=== PATIENT | male | born 2005 | race Caucasian/White ===

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

== ENCOUNTER 2023-03-18 15:24 | Emergency (ER) | payer MEDICAID, OTHER ==
[~2023-03-18] VITALS: Ht 160 cm; Wt 48.4 kg
[2023-03-18 15:26] VITALS: BP 130/75; TEMP 99.2; O2SAT 98
[2023-03-18 17:46] LABS: RSV AMPLIFICATION NEGATIVE (NEGATIVE)
== END 2023-03-18 16:29 | disposition home or self-care (01) ==
LOC: M ED 15:24
DX: J06.9 Acute upper respiratory infection, unspecified (principal); Z20.828 Contact with and (suspected) exposure to other viral communicable diseases

== ENCOUNTER 2023-03-22 23:12 | Inpatient (IN) | payer OTHER ==
[~2023-03-22] VITALS: Ht 160 cm; Wt 48.8 kg
[2023-03-23 00:23] LABS: AMPHETAMINES LEVEL URINE NEGATIVE (NEGATIVE); BARBITURATES URINE NEGATIVE (NEGATIVE); BENZODIAZEPINES URINE NEGATIVE (NEGATIVE); COCAINE METABOLITE URINE NEGATIVE (NEGATIVE); METHADONE URINE NEGATIVE (NEGATIVE); OPIATES URINE NEGATIVE (NEGATIVE); PHENCYCLIDINE URINE NEGATIVE (NEGATIVE)
[2023-03-23 00:24] LABS: ETHYL ALCOHOL (ETHANOL) < 0.003 % (0.000-0.010)
[2023-03-23 00:25] LABS: HEMATOCRIT 41.5 % (42.0-52.0); HEMOGLOBIN 14.3 g/dl (13.5-17.5); MEAN CORPUSCULAR HGB CONC 34.5 g/dl (32.0-36.5); MEAN CORPUSCULAR VOLUME 89.8 fl (80.0-96.0); PLATELET COUNT, AUTOMATED 204 10^3/uL (150-450); RED BLOOD COUNT 4.62 10^6/uL (4.30-6.10); SALICYLATE LEVEL < 3.0 MG/DL (<30); WHITE BLOOD COUNT 8.8 10^3/uL (4.0-10.0)
[2023-03-23 00:26] LABS: ALBUMIN 4.7 G/DL (3.2-5.2); ALKALINE PHOSPHATASE 72 U/L (46-116); ALT/SGPT 30 U/L (7.0-40); AST/SGOT 29 U/L (<34); BILIRUBIN,DIRECT 0.3 MG/DL (<0.4); BILIRUBIN,TOTAL 0.8 MG/DL (0.3-1.2); BLOOD UREA NITROGEN 7 MG/DL (9-23); CALCIUM LEVEL 9.6 MG/DL (8.5-10.1); CARBON DIOXIDE LEVEL 29 MMOL/L (20-31); CHLORIDE LEVEL 105 MMOL/L (98-107); CREATININE FOR GFR 0.66 MG/DL (0.70-1.30); GLUCOSE, FASTING 91 MG/DL (60-100); POTASSIUM SERUM 4.4 MMOL/L (3.5-5.1); SODIUM LEVEL 142 MMOL/L (136-145); TOTAL PROTEIN 7.1 G/DL (5.7-8.2)
[2023-03-23 00:28] LABS: CANNABINOIDS URINE POSITIVE (NEGATIVE)
[2023-03-23 00:29] LABS: THYROID STIMULATING HORMONE 1.569 uIU/ML (0.48-4.17)
[2023-03-23] MEDS ORDERED: diphenhydrAMINE 25MG CAP PO PRN (01:30)
[2023-03-23] MEDS ORDERED: IBUPROFEN 400MG TAB PO PRN (01:30)
[2023-03-23] MEDS ORDERED: MAALOX 30 ML SUSP *UDC PO PRN (01:30)
[2023-03-23] MEDS ORDERED: MOM 30ML SUSPENSION UDC PO PRN (01:30)
[2023-03-23 05:00] VITALS: BP 122/61; TEMP 98.1; O2SAT 98
[2023-03-23] MEDS ORDERED: MED REC IN PROGRESS XX SCH (13:00)
[2023-03-23] MEDS ORDERED: HOME MED LIST COMPLETE! XX SCH (13:10)
[2023-03-23] MEDS ORDERED: SERTRALINE HCL 25 MG TABLET PO ONE (13:30)
[2023-03-23 17:10] VITALS: BP 127/60; TEMP 98.6; O2SAT 97
[2023-03-24 06:17] VITALS: BP 149/66; TEMP 98.4; O2SAT 97
[2023-03-24] MEDS: SERTRALINE HCL 50 MG TAB PO SCH (08:32)
[2023-03-24] MEDS ORDERED: ONDANSETRON 4MG TAB PO PRN (11:15)
[2023-03-24 18:00] VITALS: BP 142/86; TEMP 97.8; O2SAT 96
[2023-03-25 06:50] VITALS: BP 132/57; TEMP 98; O2SAT 98
[2023-03-25] MEDS: SERTRALINE HCL 50 MG TAB PO SCH (09:02)
[2023-03-25] MEDS: ACETAMINOPHEN TAB 650MG DOSE (2X325MG) PO PRN (11:00)
[2023-03-25 19:28] VITALS: BP 145/84; TEMP 98.4; O2SAT 98
[2023-03-26 05:02] VITALS: BP 121/71; TEMP 97.9; O2SAT 98
[2023-03-26] MEDS: SERTRALINE HCL 50 MG TAB PO SCH (09:02)
[2023-03-26 18:31] VITALS: BP 125/57; TEMP 97.1; O2SAT 98
[2023-03-26] MEDS: traZODone 50 MG TAB PO PRN (22:48)
[2023-03-27 06:37] VITALS: BP 129/69; TEMP 98.5; O2SAT 99
[2023-03-27] MEDS: SERTRALINE HCL 50 MG TAB PO SCH (08:55)
[2023-03-27 16:13] VITALS: BP 116/60; TEMP 98.3; O2SAT 97
[2023-03-27] MEDS: traZODone 50 MG TAB PO PRN (22:50)
[2023-03-28 06:25] VITALS: BP 145/61; TEMP 97.4; O2SAT 100
[2023-03-28] MEDS: SERTRALINE HCL 50 MG TAB PO SCH (08:30)
[2023-03-28] MEDS ORDERED: SERT50TA29 PO (09:59)
[2023-03-28] MEDS: ACETAMINOPHEN TAB 650MG DOSE (2X325MG) PO PRN (14:32)
[2023-03-28 16:29] VITALS: BP 136/62; TEMP 98.9; O2SAT 100
[2023-03-29 06:32] VITALS: BP 118/76; TEMP 97.6; O2SAT 98
[2023-03-29] MEDS: SERTRALINE HCL 50 MG TAB PO SCH (08:20)
[2023-03-29] MEDS: ACETAMINOPHEN TAB 650MG DOSE (2X325MG) PO PRN (09:32)
== END 2023-03-29 13:10 | disposition home or self-care (01) | DRG 754 ==
LOC: M ED 23:12 → M ED INP 03-23 01:28 → M PSY 03-23 04:34
PROVIDERS: ADMIT Student in an Organized Health Care Education/Training Program; ATTEND Student in an Organized Health Care Education/Training Program
DX: F32.A Depression, unspecified (principal); F41.9 Anxiety disorder, unspecified; F12.10 Cannabis abuse, uncomplicated; F43.10 Post-traumatic stress disorder, unspecified; Z91.52 Personal history of nonsuicidal self-harm; Z81.8 Family history of other mental and behavioral disorders; Z63.5 Disruption of family by separation and divorce; Z62.812 Personal history of neglect in childhood; F90.9 Attention-deficit hyperactivity disorder, unspecified type; Z91.51 Personal history of suicidal behavior

== ENCOUNTER 2023-05-10 13:40 | Inpatient (IN) | payer MEDICAID, OTHER ==
[~2023-05-10] VITALS: Ht 160 cm; Wt 46.9 kg
[~2023-05-10 13:40] MED LIST: SERT50TA29 PO
[2023-05-10 14:57] LABS: HEMATOCRIT 47.2 % (42.0-52.0); MEAN CORPUSCULAR HEMOGLOBIN 31.3 pg (27.0-33.0); MEAN CORPUSCULAR HGB CONC 33.9 g/dl (32.0-36.5); MEAN CORPUSCULAR VOLUME 92.4 fl (80.0-96.0); PLATELET COUNT, AUTOMATED 212 10^3/uL (150-450); RED BLOOD COUNT 5.11 10^6/uL (4.30-6.10); WHITE BLOOD COUNT 7.6 10^3/uL (4.0-10.0)
[2023-05-10 15:27] LABS: AMPHETAMINES LEVEL URINE NEGATIVE (NEGATIVE); BARBITURATES URINE NEGATIVE (NEGATIVE); COCAINE METABOLITE URINE NEGATIVE (NEGATIVE); METHADONE URINE NEGATIVE (NEGATIVE)
[2023-05-10 15:28] LABS: BENZODIAZEPINES URINE NEGATIVE (NEGATIVE); OPIATES URINE NEGATIVE (NEGATIVE); PHENCYCLIDINE URINE NEGATIVE (NEGATIVE)
[2023-05-10 15:29] LABS: CANNABINOIDS URINE POSITIVE (NEGATIVE); ETHYL ALCOHOL (ETHANOL) < 0.003 % (0.000-0.010)
[2023-05-10 15:31] LABS: ALBUMIN 4.7 G/DL (3.2-5.2); ALKALINE PHOSPHATASE 77 U/L (46-116); ALT/SGPT 27 U/L (7.0-40); AST/SGOT 29 U/L (<34); BILIRUBIN,DIRECT 0.5 MG/DL (<0.4); BILIRUBIN,TOTAL 1.2 MG/DL (0.3-1.2); BLOOD UREA NITROGEN 20 MG/DL (9-23); CALCIUM LEVEL 9.7 MG/DL (8.5-10.1); CARBON DIOXIDE LEVEL 27 MMOL/L (20-31); CHLORIDE LEVEL 104 MMOL/L (98-107); CREATININE FOR GFR 0.77 MG/DL (0.70-1.30); GLUCOSE, FASTING 69 MG/DL (60-100); POTASSIUM SERUM 4.5 MMOL/L (3.5-5.1); SALICYLATE LEVEL < 3.0 MG/DL (<30); SODIUM LEVEL 138 MMOL/L (136-145); TOTAL PROTEIN 7.1 G/DL (5.7-8.2)
[2023-05-10 15:33] LABS: THYROID STIMULATING HORMONE 0.712 uIU/ML (0.48-4.17)
[2023-05-10] MEDS ORDERED: IBUPROFEN 400MG TAB PO PRN (15:45)
[2023-05-10] MEDS ORDERED: diphenhydrAMINE 25MG CAP PO PRN (15:45)
[2023-05-10] MEDS ORDERED: MOM 30ML SUSPENSION UDC PO PRN (15:45)
[2023-05-10] MEDS ORDERED: MAALOX 30 ML SUSP *UDC PO PRN (15:45)
[2023-05-10] MEDS ORDERED: ACETAMINOPHEN TAB 650MG DOSE (2X325MG) PO PRN (15:45)
[2023-05-10] MEDS ORDERED: MED REC IN PROGRESS XX SCH (16:05)
[2023-05-10] MEDS ORDERED: SERT-141 PO (16:08)
[2023-05-10] MEDS ORDERED: HOME MED LIST COMPLETE! XX SCH (16:10)
[2023-05-10 20:08] VITALS: BP 109/60; TEMP 97.2; O2SAT 99
[2023-05-10] MEDS: traZODone 50 MG TAB PO PRN (22:21)
[2023-05-11 06:22] VITALS: BP 108/58; TEMP 97.6; O2SAT 98
[2023-05-11] MEDS ORDERED: INFLUENZA QUADRIVALENT PF VACCINE 0.5ML SYRINGE IM.IMMUN ONE (16:00)
[2023-05-11 17:04] VITALS: BP 132/58; TEMP 98.7; O2SAT 99
[2023-05-12 06:26] VITALS: BP 114/67; TEMP 97.2
[2023-05-12] MEDS: VENLAFAXINE **XR** 37.5 MG CAPSULE PO SCH (09:24)
[2023-05-12 16:24] VITALS: BP 112/58; TEMP 98.8; O2SAT 100
[2023-05-13 06:21] VITALS: BP 115/58; TEMP 98.1; O2SAT 96
[2023-05-13] MEDS: VENLAFAXINE **XR** 37.5 MG CAPSULE PO SCH (08:19)
[2023-05-13 15:47] VITALS: BP 126/66; TEMP 98.6; O2SAT 98
[2023-05-14 06:25] VITALS: BP 116/58; TEMP 97.7; O2SAT 99
[2023-05-14] MEDS: VENLAFAXINE **XR** 37.5 MG CAPSULE PO SCH (08:38)
[2023-05-14 15:21] VITALS: BP 119/62; TEMP 97.6; O2SAT 99
[2023-05-14] MEDS: traZODone 50 MG TAB PO PRN (20:07)
[2023-05-14] MEDS ORDERED: OLANZapine ORAL DISINTEGRATING TAB 5MG PO ONE (20:30)
[2023-05-15 06:49] VITALS: BP 105/63; TEMP 98.6; O2SAT 96
[2023-05-15] MEDS: VENLAFAXINE **XR** 37.5 MG CAPSULE PO SCH (08:21)
[2023-05-15 18:00] VITALS: BP 114/59; TEMP 98.1; O2SAT 100
[2023-05-15] MEDS: traZODone 50 MG TAB PO PRN (20:00)
[2023-05-15] MEDS: PROPRANOLOL 20 MG TAB PO SCH (20:03)
[2023-05-16 06:30] VITALS: BP 124/70; TEMP 97.1; O2SAT 98
[2023-05-16] MEDS: VENLAFAXINE **XR** 37.5 MG CAPSULE PO SCH (08:10)
[2023-05-16 08:11] VITALS: BP 124/124
[2023-05-16] MEDS: PROPRANOLOL 20 MG TAB PO SCH (08:11)
[2023-05-16] MEDS ORDERED: TRAZ-252 PO ×2 (08:55→09:30)
[2023-05-16] MEDS ORDERED: VENL37.598 PO ×2 (08:55→09:30)
[2023-05-16] MEDS ORDERED: PROP20TA PO ×2 (08:55→09:30)
== END 2023-05-16 11:18 | disposition home or self-care (01) | DRG 754 ==
LOC: M ED 13:40 → M ED INP 15:42 → M PSY 20:05
PROVIDERS: ADMIT Student in an Organized Health Care Education/Training Program; ATTEND Student in an Organized Health Care Education/Training Program
DX: F34.1 Dysthymic disorder (principal); R45.851 Suicidal ideations; F60.3 Borderline personality disorder; F12.10 Cannabis abuse, uncomplicated; F17.290 Nicotine dependence, other tobacco product, uncomplicated; F90.9 Attention-deficit hyperactivity disorder, unspecified type; F60.2 Antisocial personality disorder; Z91.51 Personal history of suicidal behavior; Z81.8 Family history of other mental and behavioral disorders; Z81.3 Family history of other psychoactive substance abuse and dependence; Z79.899 Other long term (current) drug therapy; Z91.148 Patient's other noncompliance with medication regimen for other reason

== ENCOUNTER 2023-06-02 14:20 | Inpatient (IN) | payer MEDICAID, OTHER ==
[~2023-06-02] VITALS: Ht 160 cm; Wt 47.2 kg
[~2023-06-02 14:20] MED LIST changes: +PROP20TA PO; +SERT-141 PO; +TRAZ-252 PO; +VENL37.598 PO
[2023-06-02] MEDS ORDERED: PROP20TA72 PO (14:40)
[2023-06-02] MEDS ORDERED: SERT50TA29 PO (14:40)
[2023-06-02] MEDS ORDERED: MED REC IN PROGRESS XX SCH (14:50)
[2023-06-02] MEDS ORDERED: HOME MED LIST COMPLETE! XX SCH (15:00)
[2023-06-02 15:01] LABS: HEMOGLOBIN 16.4 g/dl (13.5-17.5); MEAN CORPUSCULAR HEMOGLOBIN 31.5 pg (27.0-33.0); MEAN CORPUSCULAR HGB CONC 34.9 g/dl (32.0-36.5); MEAN CORPUSCULAR VOLUME 90.4 fl (80.0-96.0); PLATELET COUNT, AUTOMATED 240 10^3/uL (150-450)
[2023-06-02 15:28] LABS: ETHYL ALCOHOL (ETHANOL) 0.004 % (0.000-0.010)
[2023-06-02 15:30] LABS: ALBUMIN 4.9 G/DL (3.2-5.2); ALKALINE PHOSPHATASE 93 U/L (46-116); ALT/SGPT 21 U/L (7.0-40); AST/SGOT 23 U/L (<34); BILIRUBIN,DIRECT 0.4 MG/DL (<0.4); BILIRUBIN,TOTAL 1.1 MG/DL (0.3-1.2); BLOOD UREA NITROGEN 11 MG/DL (9-23); CALCIUM LEVEL 10.3 MG/DL (8.5-10.1); CARBON DIOXIDE LEVEL 28 MMOL/L (20-31); CHLORIDE LEVEL 103 MMOL/L (98-107); CREATININE FOR GFR 0.87 MG/DL (0.70-1.30); GLUCOSE, FASTING 97 MG/DL (60-100); POTASSIUM SERUM 3.4 MMOL/L (3.5-5.1); SALICYLATE LEVEL < 3.0 MG/DL (<30); SODIUM LEVEL 136 MMOL/L (136-145); TOTAL PROTEIN 7.7 G/DL (5.7-8.2)
[2023-06-02 15:32] LABS: THYROID STIMULATING HORMONE 4.235 uIU/ML (0.48-4.17)
[2023-06-02] MEDS ORDERED: POTASSIUM CHLORIDE 10MEQ SR TABLET PO ONE (16:30)
[2023-06-02 17:15] LABS: BARBITURATES URINE NEGATIVE (NEGATIVE); BENZODIAZEPINES URINE NEGATIVE (NEGATIVE); COCAINE METABOLITE URINE NEGATIVE (NEGATIVE); METHADONE URINE NEGATIVE (NEGATIVE); OPIATES URINE NEGATIVE (NEGATIVE); PHENCYCLIDINE URINE NEGATIVE (NEGATIVE)
[2023-06-02 17:38] LABS: AMPHETAMINES LEVEL URINE POSITIVE (NEGATIVE); CANNABINOIDS URINE POSITIVE (NEGATIVE)
[2023-06-02] MEDS ORDERED: traZODone 50 MG TAB PO ONE (19:35)
[2023-06-02] MEDS ORDERED: PROPRANOLOL 20 MG TAB PO ONE (19:35)
[2023-06-02] MEDS ORDERED: LORazepam 2 MG TAB PO PRN (19:45)
[2023-06-02] MEDS ORDERED: MAALOX 30 ML SUSP *UDC PO PRN (19:45)
[2023-06-02] MEDS ORDERED: ACETAMINOPHEN TAB 650MG DOSE (2X325MG) PO PRN (19:45)
[2023-06-02] MEDS ORDERED: MOM 30ML SUSPENSION UDC PO PRN (19:45)
[2023-06-02] MEDS ORDERED: IBUPROFEN 400MG TAB PO PRN (19:45)
[2023-06-02] MEDS ORDERED: OLANZapine ORAL DISINTEGRATING TAB 5MG PO PRN (19:45)
[2023-06-02] MEDS: THIAMINE 100 MG TAB PO SCH (21:49)
[2023-06-02 23:02] VITALS: BP 137/72
[2023-06-03 06:11] VITALS: BP 114/76; TEMP 97.7; O2SAT 98
[2023-06-03 06:14] VITALS: BP 114/76
[2023-06-03] MEDS: THIAMINE 100 MG TAB PO SCH ×2 (08:32→20:35)
[2023-06-03] MEDS: PROPRANOLOL 20 MG TAB PO SCH ×2 (08:33→20:35)
[2023-06-03] MEDS: VENLAFAXINE **XR** 37.5 MG CAPSULE PO SCH (08:33)
[2023-06-03] MEDS ORDERED: FOLIC ACID 1MG TAB PO SCH (09:00)
[2023-06-03] MEDS ORDERED: MULTIVITAMINS/MINERALS THERAP 1 TAB PO SCH (09:00)
[2023-06-03 14:00] VITALS: BP 122/64
[2023-06-03 16:08] VITALS: BP 121/64; TEMP 98; O2SAT 100
[2023-06-03] MEDS: traZODone 50 MG TAB PO PRN (20:35)
[2023-06-03 22:00] VITALS: BP 121/64
[2023-06-04 06:00] VITALS: BP 101/50
[2023-06-04 06:13] VITALS: BP 101/50; TEMP 97.7; O2SAT 99
[2023-06-04] MEDS: PROPRANOLOL 20 MG TAB PO SCH ×2 (08:55→20:31)
[2023-06-04] MEDS: VENLAFAXINE **XR** 37.5 MG CAPSULE PO SCH (08:55)
[2023-06-04 15:43] VITALS: BP 115/56; TEMP 98.5; O2SAT 100
[2023-06-04] MEDS: traZODone 50 MG TAB PO PRN (20:31)
[2023-06-04] MEDS: diphenhydrAMINE 25MG CAP PO PRN (20:31)
[2023-06-05 06:06] VITALS: BP 122/60; TEMP 97.3; O2SAT 100
[2023-06-05 08:20] VITALS: BP 122/60; TEMP 97.3; O2SAT 100
[2023-06-05] MEDS: PROPRANOLOL 20 MG TAB PO SCH ×2 (08:40→20:17)
[2023-06-05] MEDS: VENLAFAXINE **XR** 75MG CAPSULE PO SCH (08:41)
[2023-06-05 16:57] VITALS: BP 132/65; TEMP 98
[2023-06-05] MEDS: diphenhydrAMINE 25MG CAP PO PRN (20:17)
[2023-06-05] MEDS: traZODone 50 MG TAB PO PRN (20:17)
[2023-06-06 06:27] VITALS: BP 114/54; TEMP 97.4; O2SAT 98
[2023-06-06] MEDS: PROPRANOLOL 20 MG TAB PO SCH ×2 (08:02→20:23)
[2023-06-06] MEDS: VENLAFAXINE **XR** 75MG CAPSULE PO SCH (08:02)
[2023-06-06] MEDS: diphenhydrAMINE 25MG CAP PO PRN ×2 (10:32→20:36)
[2023-06-06 19:04] VITALS: BP 130/76; TEMP 97.9; O2SAT 99
[2023-06-06] MEDS: traZODone 50 MG TAB PO PRN (20:23)
[2023-06-07 06:31] VITALS: BP 109/56; TEMP 97.9; O2SAT 98
[2023-06-07] MEDS: diphenhydrAMINE 25MG CAP PO PRN (07:28)
[2023-06-07 08:22] VITALS: BP 120/60
[2023-06-07] MEDS: VENLAFAXINE **XR** 75MG CAPSULE PO SCH (08:22)
[2023-06-07] MEDS: PROPRANOLOL 20 MG TAB PO SCH (08:22)
[2023-06-07] MEDS ORDERED: PROP20TA72 PO (13:44)
[2023-06-07] MEDS ORDERED: VENL75CA47 PO (13:44)
== END 2023-06-07 15:30 | disposition home or self-care (01) | DRG 754 ==
LOC: M ED 14:20 → M ED INP 19:42 → M PSY 22:58
PROVIDERS: ADMIT Student in an Organized Health Care Education/Training Program; ATTEND Student in an Organized Health Care Education/Training Program
DX: F34.1 Dysthymic disorder (principal); Z91.198 Patient's noncompliance with other medical treatment and regimen for other reason; R45.851 Suicidal ideations; F60.3 Borderline personality disorder; F43.10 Post-traumatic stress disorder, unspecified; F12.10 Cannabis abuse, uncomplicated; Z79.899 Other long term (current) drug therapy; F17.200 Nicotine dependence, unspecified, uncomplicated; Z81.3 Family history of other psychoactive substance abuse and dependence; Z91.52 Personal history of nonsuicidal self-harm; Z62.812 Personal history of neglect in childhood

== ENCOUNTER 2023-07-14 10:37 | Emergency (ER) | payer MEDICAID, OTHER ==
[~2023-07-14] VITALS: Ht 157.5 cm; Wt 47.4 kg
[~2023-07-14 10:37] MED LIST changes: +PROP20TA72 PO; +VENL75CA47 PO
[2023-07-14 11:49] LABS: BASO # 0.1 10^3/uL (0.0-0.2); BASO % 0.9 % (0.0-1.0); EOS # 0.1 10^3/uL (0.0-0.5); EOS % 1.2 % (0.0-3.0); HEMATOCRIT 44.9 % (42.0-52.0); HEMOGLOBIN 15.4 g/dl (13.5-17.5); LYMPH # 1.5 10^3/uL (1.5-5.0); LYMPH % 26.4 % (24.0-44.0); MEAN CORPUSCULAR HEMOGLOBIN 31.4 pg (27.0-33.0); MEAN CORPUSCULAR HGB CONC 34.3 g/dl (32.0-36.5); MEAN CORPUSCULAR VOLUME 91.4 fl (80.0-96.0); MONO # 0.7 10^3/uL (0.0-0.8); MONO % 11.4 % (2.0-8.0); NEUTROPHILS # 3.5 10^3/uL (1.5-8.5); NEUTROPHILS % 59.9 % (36.0-66.0); PLATELET COUNT, AUTOMATED 210 10^3/uL (150-450); RED BLOOD COUNT 4.91 10^6/uL (4.30-6.10); WHITE BLOOD COUNT 5.8 10^3/uL (4.0-10.0)
[2023-07-14] MEDS: ONDANSETRON 4MG 2ML VIAL IV ONE (12:19)
[2023-07-14] MEDS: NS 1,000 ML IV ONE (12:19)
[2023-07-14 12:23] LABS: ALBUMIN 4.4 G/DL (3.2-5.2); BILIRUBIN,DIRECT 0.2 MG/DL (<0.4); BILIRUBIN,TOTAL 0.6 MG/DL (0.3-1.2); TOTAL PROTEIN 6.8 G/DL (5.7-8.2)
[2023-07-14 13:38] VITALS: BP 115/59; TEMP 98.6; O2SAT 100
== END 2023-07-14 14:05 | disposition home or self-care (01) ==
LOC: M ED 10:37
DX: A09 Infectious gastroenteritis and colitis, unspecified (principal); U07.1 COVID-19; N20.0 Calculus of kidney; F32.A Depression, unspecified; Z79.899 Other long term (current) drug therapy
CPT/HCPCS: 80047; 80076; 83690; 85025; 87486; 87581; 87633; 87798; 96361; 96374; 99284; J2405